=== PATIENT | male | born 1935 | race Native Hawaiian/Other Pacific Islander ===

== ENCOUNTER 2019-05-13 08:46 | Outpatient (CLI) | payer OTHER, BC ==
[2019-05-13 09:46] LABS: POTASSIUM 4.8 mmol/L (3.6-5.2)
== END 2019-05-13 22:19 | disposition home or self-care (01) ==
LOC: LABW 08:46 → LAB 08:46
PROVIDERS: Internal Medicine Cardiovascular Disease
DX: R60.9 Edema, unspecified (principal); Z09 Encounter for follow-up examination after completed treatment for conditions other than malignant neoplasm
CPT/HCPCS: 36415; 80048